=== PATIENT | female | born 2000 | race American Indian/Alaskan Native ===

== ENCOUNTER 2021-06-06 11:45 | Emergency (ER) | payer OTHER ==
[2021-06-06 12:57] VITALS: BP 143/92
--- NOTE | 2021-06-06 13:05 | Emergency Department Report ---
Minor Respiratory - HPI Chief Complaint: Dyspnea/Respdistress Stated Complaint: SINUS Time Seen by Provider: 06/06/21 13:02 Pain Location: Facial, Throat Severity: mild Minor Respiratory: Yes Able to Tolerate Fluids, No Rhinorrhea, No Sore Throat, No Ear Pain, No Cough, No Sick Contacts, No Hemoptysis, No Chest Pain, No Shortness of Breath, No Fever Other History: This Brown is a 20-year-old that comes in with allergic rhinitis symptoms. She has nasal stuffiness. And sinus tenderness. 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 Note that it is also the end of May in [place] and pollen is speaking. Patient denies fever or chills. She denies any purulent sputum. She denies cough. She has no fever or chills ED Review of Systems ROS: Stated complaint: SINUS Other details as noted in HPI Comment: All other systems reviewed and negative ED Past Medical Hx - Past Medical History Previous Medical History?: No - Surgical History Past Surgical History?: No - Family History Family history: no significant - Social History Smoking Status: Never Smoker Substance Use Type: None - Medications Home Medications: Home Medications Medication Instructions Recorded Confirmed Last Taken Type Cetirizine HCl [ZyrTEC] 10 mg PO DAILY #30 capsule 06/06/21 Unknown Rx Sodium Chloride [Saline Nasal 2 spr NS Q2H PRN #1 each 06/06/21 Unknown Rx Thor] methylPREDNISolone [Medrol 4MG 4 mg PO FS #1 tab.ds.pk 06/06/21 Unknown Rx DOSEPAK (21 tabs)] Minor Respiratory Exam - Exam General: Vital signs noted. No distress. Alert and acting appropriately. HEENT: Yes Pharyngeal Erythema, Yes Moist Mucous Membranes, No Pharyngeal Exudates, No Rhinorrhea, No Conjuctival Injection, No Frontal Tenderness, No Maxillary Tenderness Ear: Neither TM Bulge, Neither TM Erythema, Neither EAC Pain, Neither EAC Discharge Neck: Yes Supple, No Adenopathy Lungs: Yes Good Air Exchange, No Wheezes, No Ronchi, No Stridor, No Cough, No Labored Respirations, No Retractions, No Use of Accessory Muscles, No Other Abnormal Lung Sounds Heart: Yes Regular, No Murmur Abdomen: No Tenderness, No Peritoneal Signs Skin: No Rash, No Edema Neurologic: Alert and oriented, no deficits. Musculoskeletal: Unremarkable. ED Course Vital Signs 06/06/21 12:55 Temperature 97.3 F L Pulse Rate 78 Respiratory 18 Rate Blood Pressure 143/92 [Right] O2 Sat by Pulse 99 Oximetry ED Medical Decision Making - Medical Decision Making Vital Signs 06/06/21 12:55 Temperature 97.3 F L Pulse Rate 78 Respiratory 18 Rate Blood Pressure 143/92 [Right] O2 Sat by Pulse 99 Oximetry Patient states that she blows her nose to the point that she has a bloody nose. I have given her a shot of Decadron here in the ER for inflammation. Patient being discharged home with discharge plan of care. She verbalizes understanding of discharge plan including medications, diet, activity and follow-up. - Differential Diagnosis uri versus allergic rhinitis versus sinusitis versus allergies Critical care attestation.: If time is entered above; I have spent that time in minutes in the direct care of this critically ill patient, excluding procedure time. ED Disposition Clinical Impression: Allergic rhinitis Qualifiers: Allergic rhinitis trigger: other Disposition: 01 HOME / SELF CARE / HOMELESS Is pt being admited?: No Does the pt Need Aspirin: No Condition: Stable Instructions: Allergic Rhinitis, Adult Additional Instructions: Medications as ordered today. Follow-up with PCP if problems persist. I have given you referral below Stay well-hydrated with water Prescriptions: methylPREDNISolone [Medrol 4MG DOSEPAK (21 tabs)] 4 mg PO FS #1 tab.ds.pk Sodium Chloride [Saline Nasal Thor] 2 spr NS Q2H PRN #1 each PRN Reason: Inflammation Cetirizine HCl [ZyrTEC] 10 mg PO DAILY #30 capsule Referrals: JEFFREY HUDDLESTON MD [Staff Physician] - 3-5 Days Forms: Work/School Release Form(ED) Time of Disposition: 13:03
== END 2021-06-06 13:42 | disposition home or self-care (01) ==
LOC: ED 11:45
DX: J30.9 Allergic rhinitis, unspecified (principal)
CPT/HCPCS: 99282